=== PATIENT | male | born 1965 | race Hispanic/Latino ===

== ENCOUNTER 2020-02-21 17:47 | Emergency (ER) | payer SELFPAY ==
[2020-02-21] MEDS ORDERED: Boostrix 0.5 ML (Tdap) VIAL ONE (19:06)
== END 2020-02-21 19:10 | disposition home or self-care (01) ==
LOC: BURERS 17:47
DX: S01.01XD Laceration without foreign body of scalp, subsequent encounter (principal); V89.2XXD Person injured in unspecified motor-vehicle accident, traffic, subsequent encounter
CPT/HCPCS: 90471; 90715